=== PATIENT | male | born 1980 | race Caucasian/White ===

== ENCOUNTER 2019-05-05 01:13 | Emergency (ER) | payer OTHER ==
[2019-05-05] MEDS ORDERED: HYDROcodone/Acetaminophen 10/325 mg Tablet ONE (02:50)
--- NOTE | 2019-05-05 10:25 | RAD ---
2 VIEWS LEFT FOREARM: Date: 05/05/19 HISTORY: Bitten by stray dog. FINDINGS: There is subcutaneous emphysema due to soft tissue injury. No radiopaque foreign body. No fracture. N o cortical irregularity or periosteal reaction. IMPRESSION: 1. No fracture. No radiopaque foreign body. 2. Subcutaneous air due to soft tissue laceration. POS: OFF
--- NOTE | 2019-05-05 11:49 | RAD ---
LEFT HAND 3 VIEWS: Date: 05/05/19 HISTORY: Patient bitten by stray dog. FINDINGS: There is subcu air at the level of the wrist. No fractures. No cortical irregularity or periosteal re action. Joint spaces preserved. No radiopaque foreign body. IMPRESSION: 1. No fracture. 2. Subcu air due to soft tissue injury. No radiopaque foreign body. POS: OFF
== END 2019-05-05 02:51 | disposition left against medical advice (07) ==
LOC: ERS 01:13
DX: Z53.21 Procedure and treatment not carried out due to patient leaving prior to being seen by health care provider (principal)